=== PATIENT | male | born 1965 | race Caucasian/White ===

== ENCOUNTER 2018-04-12 16:10 | Inpatient (IN) | payer MEDICARE, OTHER ==
[~2018-04-12] VITALS: Ht 172.7 cm; Wt 134.7 kg
[2018-04-12] MEDS ORDERED: CARV6.25 PO (16:54)
[2018-04-12] MEDS ORDERED: INSULANPEN (16:54)
[2018-04-12] MEDS ORDERED: FURO80 PO (16:54)
[2018-04-12] MEDS ORDERED: Humalog100 UNIT/1 (16:55)
[2018-04-12] MEDS ORDERED: ALBU3IS INH (16:55)
[2018-04-12] MEDS ORDERED: LOPE2C PO (16:55)
[2018-04-12] MEDS ORDERED: METF500C PO (16:56)
[2018-04-12] MEDS ORDERED: PHENY100ER PO (16:57)
[2018-04-12] MEDS ORDERED: LOSARTAN-HCTZ1 EAC1 PO (16:57)
[2018-04-12] MEDS ORDERED: SACC250C (16:58)
[2018-04-12] MEDS ORDERED: PREG75 PO (16:58)
[2018-04-12 17:04] LABS: BASOPHILS ABSOLUTE AUTO 0.07 K/mm3 (0.00-0.23); BASOPHILS PERCENT AUTO 0 % (0-2); EOSINOPHILS ABSOLUTE AUTO 0.43 K/mm3 (0.00-0.68); EOSINOPHILS PERCENT AUTO 3 % (0-6); Hematocrit 19.7 % (37.0-53.0); IMMATURE GRAN ABSOLUTE AUTO 0.14 K/mm3 (0.00-0.10); IMMATURE GRAN PERCENT AUTO 1 % (0-1); LYMPHOCYTES ABSOLUTE AUTO 3.13 K/mm3 (0.84-5.20); LYMPHOCYTES PERCENT AUTO 19 % (21-46); MONOCYTES ABSOLUTE AUTO 1.11 K/mm3 (0.16-1.47); MONOCYTES PERCENT AUTO 7 % (4-13); Mean Corpuscular HGB 26.7 pg (26.0-34.0); Mean Corpuscular HGB Conc 30.5 g/dL (31.5-36.5); Mean Corpuscular Volume 88 fL (80-100); NEUTROPHILS ABSOLUTE AUTO 11.87 K/mm3 (1.96-9.15); NEUTROPHILS PERCENT AUTO 71 % (41-73); Platelet Count 360 K/mm3 (150-400); RDW Coefficient Variation 15.7 % (11.7-14.2); RDW Standard Deviation 50.3 fL (35.1-46.3); Red Blood Cell Count 2.25 M/mm3 (4.30-5.90); White Blood Cell Count 16.75 K/mm3 (4.00-11.30)
[2018-04-12 17:25] LABS: Albumin, Blood 1.8 g/dL (3.4-5.0); Albumin/Globulin Ratio 0.4 (0.8-1.8); Bilirubin, Total 0.3 mg/dL (0.1-1.0); Bun/Creatinine Ratio 14.3 (12.0-20.0); Calcium, Blood 6.6 mg/dL (8.5-10.1); Creatinine, Blood 2.17 mg/dL (0.60-1.20); Globulin, Blood 4.6 g/dL (2.2-4.0); Potassium, Blood 4.5 mmol/L (3.5-5.5); Total Protein, Blood 6.4 g/dL (6.4-8.2)
[2018-04-12 18:00] LABS: Gentamicin, Random 3.9 ug/Ml
[2018-04-12] MEDS ORDERED: DOCU100 PO (22:16)
[2018-04-12] MEDS ORDERED: PRAV20 PO (22:16)
[2018-04-12] MEDS ORDERED: OXYC10ER PO (22:19)
[2018-04-12] MEDS ORDERED: MAGOXI400 PO (22:19)
[2018-04-12] MEDS ORDERED: ACET325 PO (22:35)
[2018-04-12] MEDS ORDERED: LORA.5 PO (22:36)
[2018-04-12 22:39] LABS: Gentamicin, Trough 3.6 ug/mL (0.0-1.9)
[2018-04-12] MEDS ORDERED: ONDA4ODT (22:39)
--- NOTE | 2018-04-13 05:55 | NUR ---
SHIFT SUMMARY PT ALERT AND ORIENTED X 3 THORUGHOUT SHIFT. HE ARRIVED FROM [facility] WITH SOME AGITATION, THIS WAS NOT PRESENT AFTER ENGAGING WITH [facility]. HE STATED THAT HE WAS HAPPY WITH THE BED HE HAD HERE AND THE CARE THAT HE RECEIVED. PT HAD TWO UNITS OR PRBCS WHILE HERE AND HIS VITAL SIGNS IMPROVED T/O THE SHIFT. PT HAD PAIN DURING MOVEMENT IN HIS FOOT AND RISIDUAL LIMB, BUT THIS WAS ALLEVIATED TO PATIENT SATISFACTION WITH ORDERED PAIN MEDICATION. PT SLEPT T/O THE SHIFT, WAKING EASILY FOR VITALS AND ASSESSMENTS. PT DENIED ANY UNMET NEEDS, TOOK PILLS WHOLE WITHOUT ISSUE AND WAS ABLE TO COMMUNICATE WITH STAFF EFFECTIVELY. HE HAS HIS BED IN THE LOWEST POSITION, CALL LIGHT IN REACH AND 2X SIDE RAILS IN PLACE. HE WILL CONTINUE TO BE MONITORED UNITL HANDOFF TO DAYSHIFT RN.
[2018-04-13 06:42] LABS: Hematocrit 23.3 % (37.0-53.0); Hemoglobin 7.4 g/dL (13.5-17.5); Mean Corpuscular HGB 27.1 pg (26.0-34.0); Mean Corpuscular HGB Conc 31.8 g/dL (31.5-36.5); Mean Platelet Volume 8.9 fL (9.1-12.4); Platelet Count 327 K/mm3 (150-400); RDW Coefficient Variation 15.5 % (11.7-14.2); RDW Standard Deviation 47.8 fL (35.1-46.3); Red Blood Cell Count 2.73 M/mm3 (4.30-5.90); White Blood Cell Count 14.41 K/mm3 (4.00-11.30)
[2018-04-13 06:58] LABS: Gentamicin, Random 2.3 ug/Ml
[2018-04-13 07:04] LABS: Mean Corpuscular Volume 85 fL (80-100)
--- NOTE | 2018-04-13 10:20 | NUR ---
NURSING PCU DAYSHIFT: Assumed care of pt at approx 0700. A/O, pleasant, cooperative w/care. C/O 710 L foot pain, treating w/meds as ordered. 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 Pt is bedrest at this time w/NWB status d/t recent L partial foot amputation. Tele in place, NSR, no c/o CP/pressure, SBP 120's prior to a.m. meds, trace general edema. L/S cta t/o, O2 sat 100% on RA, denies dyspnea, no noted cough. Abd mildly distended which pt states is normal, BT+, denies nausea, voiding dark/tea clored urine using urinal independently. Mediport present and accessed in RCW w/NS TKO. No s/s of acute distress at this time. Seen by PMD, new d/o received. Pt changed to medical status w/o Dr. Carlos us to be called for podiatry consult and wound management. Pt denies any current needs or questions regarding plan of care. Call light in reach, cont to monitor for changes.
[2018-04-13 15:34] LABS: Gentamicin, Random 1.6 ug/Ml
--- NOTE | 2018-04-13 17:11 | NUR ---
NURSING PCU DAYSHIFT SUMMARY: No significant changes noted t/o the a.m. Seen by facility maintenance helper, new d/o received for L foot amputation wound management. Wound vac placed by wound RN and CN at approx 1300, pt tolerated well. Pt has been resting well t/o the shift w/o complaints. Continues to refuse repositioning or personal care. Provided education on importance of repositioning for skin health and pressure ulcer prevention, pt verbalized understanding. No s/s of acute distress at this time. Pt remains medical status w/o tele, awaiting bed assignment. Call light remains in reach, cont to monitor until rpt is given to NOC RN.
--- NOTE | 2018-04-14 02:59 | NUR ---
TRANSFER: REPORT RECIEVED FROM LAURA PARKER. PT TRANSFERED TO UNIT AT ABOUT 2200. UPON ASSESSMENT PT IS IN NO VISABLE DISTRESS,A/O, VSS. PT DENIES PAIN AT THIS TIME. SURGICAL SITE AND WOUND VAC WNL, NO LEAKING NOTED. KEITH REPORTED THAT PT HAD BEEN REFUSING REPOSITIONING AND ASSESSMENT OF BUTTOCK ON PCU. PT AGREED TO LET [employer]ANT ENGINEER JHONATAN AND I GIVE HIM A BED BATH AND ASSESS/TAKE PICTURES OF PT WOUNDS AT COCCYX. MODERATE ASSIST TO TURN AND PICTURES TAKEN OF ULCER WOUND AT COCCYX, SEE PAPER CHART. WOUND HAS MODERATE AMOUNT OF PURULENT DRAINAGE AND ESCHAR TISSUE. TWO MEPILEX DRESSINGS PLACED AT THIS TIME AND PT EDUCATED ABOUT THE NEED FOR FREQUENT TURNING. PT COMPLIANT, BUT TOOK SOME CONVINCING TO ALLOW REPOSITIONING. PT REPORTS THAT A LEAD CASE MANAGER HAS NOT SEEN HIS WOUND AT COCCYX. WOULD RECOMMEND WOUND CARE CONSULT, POSSIBLE DEBRIDEMENT. WILL MAKE THE DAY RN, AND CODING COMPLIANCE MANAGER AWARE AND CTM.
--- NOTE | 2018-04-14 06:29 | NUR ---
SUMMARY: NO CHANGE SINCE TRANSER. PT TURNED Q2, AND WOUND SITE AT COCCYX CHECKED THIS AM, MEPILEX X2 CDI. PT MEDICATED FOR PAIN X1. MEDIPORT TO TKO FLUIDS. PT REQUESTED O2 WHILE SLEEPING, REPORTS THAT 3L NC IS HIS BASELINE FOR SLEEP, DENIES CPAP USE. NO CHANGE IN WOUND VAC. VSS, TELE DC'D PER ORDER. WILL CTM AND REPORT TO DAY RN.
[2018-04-14 06:33] LABS: Gentamicin, Random 0.4 ug/Ml
--- NOTE | 2018-04-14 10:36 | NUR ---
CONSULT CALLED TO DR PATTERSON'S OFFICE FOR COCCYX WOUND.
--- NOTE | 2018-04-14 13:30 | NUR ---
DR PATTERSON IN TO SEE PATIENT, TENTATIVE PLAN TO OC TO OR TOMORROW TO DEBRIDE COCCYX.
[2018-04-14] MEDS ORDERED: OXYC10ER PO (15:24)
--- NOTE | 2018-04-14 15:38 | NUR ---
PATIENT LOCATED OWN MEDS IN BELONGINGS BAG. TAKEN TO PHARMACY AT THIS TIME. VO REC'D FOR PATIENT'S HOME DOSE OF OXYCONTIN.
--- NOTE | 2018-04-14 18:09 | NUR ---
SHIFT SUMMARY PATIENT APPEARS COMFORTABLE THIS AFTERNOON, SLEEPING INTERMTANTLY. WOUND VAC TO R FOOT INTACT, SS DRAINAGE. TOLERAATING PO. PLAN FOR OC TO OR TOMORROW FOR COCCYX DEBRIDEMENT.
--- NOTE | 2018-04-15 04:19 | NUR ---
SHIFT SUMMARY PT ADMITTED FOR POST OPERATIVE ANEMIA. PT HAS BEEN NPO [place]CE [place] IN PREP FOR POTENTIAL WOUND DEBRIDEMENT TODAY OF SACRAL WOUND. ESCHAR PRESENT TO WOUND BED, MEPILEX IN PLACE OVER SACRUM. S/P LEFT FOOT DEBRIDEMENT AND WOUND VAC PLACEMENT FOR NONHEALING ULCER. SCANT AMOUNT SS DRAINAGE PRESENT IN TUBING. PT IS 2 MAX ASSIST FOR REPOSITIONING AND REFUSED SIDE TO SIDE REPOSITIONING THIS SHIFT. HE DID ALLOW CHANGING THE CRUZ AND PARTIAL ADJUSTMENT. LEFT FOOT ELEVATED ON PILLOWS. 1L O2 VIA NC, PT DENIES SOB. WILL CTM UNTIL PASS TO NEXT SHIFT.
--- NOTE | 2018-04-15 07:10 | NUR ---
pt reports pain 6/10 req his pain meds when avail stated yesterday they did not have him on his long acting pain meds but they did get it reordered pt has wound vac to l bka upper and lower pt has sero/sang drainage to woundvac pt also has a dressing to r abk has dressing x2 cdi pt has optifoam dressing to coccyx with odor pt is npo until seen by dr french for poss coccyx debridement today
--- NOTE | 2018-04-15 09:30 | NUR ---
dr french by ok to eat breakfast no surg today for debridement will trial sentyl and replace optifoam dressing will do daily to remove black eschar
--- NOTE | 2018-04-15 11:53 | NUR ---
new dressing applied to coccyx with santyl medication repositioned earlier pt had a leak to wound vac placed a tegaderm to lower dressing and upper dressing no longer having a leak
--- NOTE | 2018-04-15 14:48 | NUR ---
pt req pain meds 1 tab po oxy given pain 08/11
--- NOTE | 2018-04-15 17:33 | NUR ---
PT EATING DINNER REQ IMMODIUM OK TO START WITH 4 MG PER ORDER
--- NOTE | 2018-04-15 18:27 | NUR ---
PT STATED HE WANTS TO TRY AND SLEEP REPOSISTIONED
--- NOTE | 2018-04-16 05:19 | NUR ---
SHIFT SUMMARY PT REMAINS ON FLOOR FOR POST OP ANEMIA & CHRONIC WOUNDS. H&H THIS MORNING IS SLIGHTLY IMPROVED. WOUND VAC TO LEFT FOOT D/I, NO LEAKS NOTED. MEDICATED FOR PAIN PER EMAR. PT ALLOWED PARTIAL REPOSITIONING. SANTYL CREAM AND MEPILEX TO COCCYX WOUND. 1L VIA NC, PT DENIES SOB. NO ACUTE CHANGES OVERNIGHT. WILL CTM UNTIL PASS TO NEXT SHIFT.
[2018-04-16 05:21] LABS: Hematocrit 24.4 % (37.0-53.0); Hemoglobin 7.5 g/dL (13.5-17.5); Mean Corpuscular HGB 27.1 pg (26.0-34.0); Mean Corpuscular HGB Conc 30.7 g/dL (31.5-36.5); Mean Platelet Volume 9.1 fL (9.1-12.4); Platelet Count 428 K/mm3 (150-400); RDW Coefficient Variation 16.4 % (11.7-14.2); RDW Standard Deviation 52.8 fL (35.1-46.3); Red Blood Cell Count 2.77 M/mm3 (4.30-5.90); White Blood Cell Count 12.52 K/mm3 (4.00-11.30)
[2018-04-16 05:22] LABS: Mean Corpuscular Volume 88 fL (80-100)
[2018-04-16 05:40] LABS: Anion Gap 8 mmol/L (6-16); Blood Urea Nitrogen 15 mg/dL (8-24); Bun/Creatinine Ratio 15.2 (12.0-20.0); CO2, Blood 23 mmol/L (21-32); Calcium, Blood 7.8 mg/dL (8.5-10.1); Chloride, Blood 108 mmol/L (98-108); Creatinine, Blood 0.98 mg/dL (0.60-1.20); Glomerular Filtration Rate >60 (60-); Glucose, Blood 100 mg/dL (70-99); Potassium, Blood 4.1 mmol/L (3.5-5.5); Sodium, Blood 139 mmol/L (136-145)
[2018-04-16 09:05] LABS: Gentamicin, Random 0.3 ug/Ml
--- NOTE | 2018-04-16 10:27 | NUR ---
pt watching football game wants to wait untill it is over to do the dressing changes
--- NOTE | 2018-04-16 11:51 | NUR ---
dr sanford by to see pt meds given as sched
--- NOTE | 2018-04-16 14:56 | NUR ---
Permission to provide care Permission granted by patient for Ale Dove to provide care 04/17/18
--- NOTE | 2018-04-16 15:20 | NUR ---
WOUND VAC DRESSING TO L LEG CHANGED X2 ALSO PLACED NEW DRESSING TO COCCYX SANTYL APPLIED FENT GIVEN PRIOR TO DRESSING CHANGE PT OOB TO CHAIR WITH SAGRARIO LIFT UNABLE TO ZAIRA SITTING ON HIS BOTTOM ASSISTED BACK TO BED
--- NOTE | 2018-04-16 17:57 | NUR ---
pt declined dinner stated he wants to rest repositioned
--- NOTE | 2018-04-16 22:33 | NUR ---
PT MOVED FROM 224 TO 227 FOR CEILING LIFT PRN
--- NOTE | 2018-04-17 05:53 | NUR ---
SHIFT SUMMARY PT REMAINS ON FLOOR FOR POST OP ANEMIA, GENERALLY RESOLVED, AND CHRONIC WOUNDS. PT HAS BEEN NPO SINCE MIDNIGHT. HE IS TENTATIVELY SCHEDULED FOR THE OR TODAY FOR DEBRIDEMENT OF SACRAL WOUND. RIGHT STUMP WOUND REDRESSED THIS EVENING AND STUMP LOTIONED AND SOCK PLACED. HE WAS HAVING MORE PAIN TODAY, MEDICATED PER EMAR. HE CONTINUES TO REFUSE THE MAJORITY OF REPOSITIONING. INSULIN COVERAGE PER EMAR. WILL CTM UNTIL PASS TO NEXT SHIFT.
--- NOTE | 2018-04-17 09:49 | NUR ---
BROUGHT TO [facility] FOR SURGERY VSS COOPERATIVE WITH ADMISSION.
--- NOTE | 2018-04-17 10:36 | NUR ---
04/17/18 1036 Kecia Smallwood PATIENT IS ON SCHEDULED ANTIBIOTICS
[2018-04-17 12:32] LABS: Hematocrit 25.7 % (37.0-53.0); Hemoglobin 7.9 g/dL (13.5-17.5); Mean Corpuscular HGB 27.1 pg (26.0-34.0); Mean Corpuscular HGB Conc 30.7 g/dL (31.5-36.5); Mean Corpuscular Volume 88 fL (80-100); Mean Platelet Volume 8.9 fL (9.1-12.4); Platelet Count 422 K/mm3 (150-400); RDW Coefficient Variation 16.5 % (11.7-14.2); RDW Standard Deviation 53.3 fL (35.1-46.3); Red Blood Cell Count 2.92 M/mm3 (4.30-5.90); White Blood Cell Count 11.42 K/mm3 (4.00-11.30)
--- NOTE | 2018-04-17 15:51 | NUR ---
SHIFT SUMMARY PT A&OX4, 2LNC, S/P I&D SACRAL DECUB ULCER, DRESSING SCANT DRAINAGE. LLE WOUND VAC, NO LEAKS NOTED, RLE BKA CDI, BOTH ELEVATED. MEDIPORT TKO @ 25 MLS/HR. PAIN MANAGED PER EMAR. ZAIRA PO, DENIES N&V. REPOSITIONING Q2 WITH PT ASSISTANCE. CBG'S CNI. WILL CTM & TX PER EMAR UNTIL REPORT GIVEN TO ONCOMING NOC RN.
--- NOTE | 2018-04-18 05:19 | NUR ---
SUMMARY NO ACUTE CHANGES NOTED FROM ASSESSMENT. PT CONTINUES TO REFUSE TO BE REPOSITIONED Q2 HRS. EDUCATION WAS PROVIDED. PT WAS ALSO ENCOURAGED TO ALLOW PLACEMENT OF SLING FOR LIFT USE TO EASE REPOSITIONING. HE CONTINUES TO REFUES AND BACAME ANGRY. DRSG REMAIN C/D/I. PT HAS STAYED OFF HIS BACK AND TO THE RIGHT SIDE. WOUND VAC IN PLACE. PAIN MANAGED PER EMAR. PT ISTOLERATING PO INTAKE. CALL LIGHT IN REACH, WCTM AND REPORT TO ONCOMING RN.
[2018-04-18 11:25] LABS: Anion Gap 10 mmol/L (6-16); Blood Urea Nitrogen 16 mg/dL (8-24); Bun/Creatinine Ratio 15.1 (12.0-20.0); CO2, Blood 21 mmol/L (21-32); Calcium, Blood 7.9 mg/dL (8.5-10.1); Chloride, Blood 106 mmol/L (98-108); Creatinine, Blood 1.06 mg/dL (0.60-1.20); Creatinine, Blood 1.08 mg/dL (0.60-1.20); Gentamicin, Trough <0.2 ug/mL (0.0-1.9); Glomerular Filtration Rate >60 (60-); Glucose, Blood 202 mg/dL (70-99); Sodium, Blood 137 mmol/L (136-145)
--- NOTE | 2018-04-18 18:45 | NUR ---
SHIFT SUMMARY PT HAS DONE WELL THIS SHIFT. MEDICATED WITH SCHEDUALED OXYCONTIN PER EMAR AND MEDICATED ONCE WITH ROXICODONE FOR BREAKTHRU PAIN. DRESSING ON COXYX CHANGED BY DR PATTERSON-WILL CONTINUE DAMP TO DRY DRESSING CHANGES DAILY. WOUND VAC ON LLE WITH GOOD SUCTION-NO LEAKS. PT REFUSES Q2 REPOSITION BUT WILL CALL TO REPOSITION WHEN HE FEELS IT'S NEEDED-PT EDUCATED ON THE NEED TO CONTINUOUSLY RELIEVE PRESSURE ON COXYX-PT VERBALIZED UNDERSTANDING.
--- NOTE | 2018-04-18 20:33 | NUR ---
Patient approved this clinical nursing instructor to work with patient.
--- NOTE | 2018-04-19 15:10 | NUR ---
PERMISSION FOR CARE PT GAVE THIS FINGER BUFF SEWER PERMISSION TO CARE FOR ON APRIL 20, 2018
--- NOTE | 2018-04-19 17:04 | NUR ---
SHIFT SUMMARY NO ACUTE CHANGES TODAY. VSS. PT MEDICATED WITH SCHEDULED PAIN MEDICATIONS AND X1 DOSE PRN MEDICATION. WOUND VAC DRESSINGS CHANGED TODAY AND COCCYX DRESSING CHANGED BY DR. PATTERSON. REPOSITIONING Q2H. PT ZAIRA ADA DIET. IV TKO INTO MEDIPORT. USING URINAL TO VOID. USES CALL LIGHT. WILL CONT TO MONITOR.
--- NOTE | 2018-04-20 06:44 | NUR ---
SUMMARY PT REFUSING FULL SKIN CK WOULD REQUIRE REPOSITIONING. PT REFUSING ALL REPOSITIONING PER STAFF ASSIST. PT REPOSITIONS SELF SLIGHTLY ONLY. VERB UNDERSTANDING OF RISKS. WOND VAC AT HEEL TEGADERM REINFORCED. CONT SX. PO PAIN MEDS EFFECTIVE. JUST GAVE PO PAIN MED. GAVE SHORT ACTING PT WILL BE TAKING LONG ACTING SOON.
--- NOTE | 2018-04-20 13:35 | NUR ---
PT DECLINED BEING REPOSITIONED
--- NOTE | 2018-04-20 17:18 | NUR ---
SUMMARY NO ACUTE CHANGES T/O SHIFT. PT REFUSES TO BE REPOSITIONED. STATES MOVES SELF IN BED. DID ALLOW CHANGE OF COCCYX DRESSING THIS SHIFT. FOUL SMELLING. DID NOT ALLOW ASSESSMENT OF STUMP; DID NOT ALLOW STOCKING TO BE REMOVED. WOUND VAC OPERATING W/O DIFFICULTY. MEDICATED PER ORDERS DURING SHIFT FOR PAIN. CALL LIGHT IN REACH.
[2018-04-21 04:55] LABS: BASOPHILS ABSOLUTE AUTO 0.11 K/mm3 (0.00-0.23); BASOPHILS PERCENT AUTO 1 % (0-2); EOSINOPHILS PERCENT AUTO 5 % (0-6); Hemoglobin 8.2 g/dL (13.5-17.5); IMMATURE GRAN ABSOLUTE AUTO 0.07 K/mm3 (0.00-0.10); IMMATURE GRAN PERCENT AUTO 1 % (0-1); LYMPHOCYTES ABSOLUTE AUTO 2.41 K/mm3 (0.84-5.20); LYMPHOCYTES PERCENT AUTO 23 % (21-46); MONOCYTES ABSOLUTE AUTO 0.89 K/mm3 (0.16-1.47); MONOCYTES PERCENT AUTO 8 % (4-13); Mean Corpuscular HGB 26.2 pg (26.0-34.0); Mean Corpuscular HGB Conc 30.4 g/dL (31.5-36.5); Mean Corpuscular Volume 86 fL (80-100); NEUTROPHILS ABSOLUTE AUTO 6.67 K/mm3 (1.96-9.15); NEUTROPHILS PERCENT AUTO 63 % (41-73); Platelet Count 479 K/mm3 (150-400); RDW Coefficient Variation 16.2 % (11.7-14.2); RDW Standard Deviation 50.7 fL (35.1-46.3); Red Blood Cell Count 3.13 M/mm3 (4.30-5.90); White Blood Cell Count 10.65 K/mm3 (4.00-11.30)
[2018-04-21 05:19] LABS: Anion Gap 7 mmol/L (6-16); Blood Urea Nitrogen 21 mg/dL (8-24); Bun/Creatinine Ratio 15.9 (12.0-20.0); CO2, Blood 24 mmol/L (21-32); Calcium, Blood 8.2 mg/dL (8.5-10.1); Chloride, Blood 105 mmol/L (98-108); Creatinine, Blood 1.32 mg/dL (0.60-1.20); Glomerular Filtration Rate >60 (60-); Glucose, Blood 145 mg/dL (70-99); Potassium, Blood 4.3 mmol/L (3.5-5.5); Sodium, Blood 136 mmol/L (136-145)
[2018-04-21 05:22] LABS: Percent Saturation 15.6 % (20.0-50.0)
--- NOTE | 2018-04-21 06:38 | NUR ---
SUMMARY PT CONTINUES TO REFUSE REPOSITIONING BY STAFF.I CONT UNABLE TO FULLY ASSESS SKIN/ WOUNDS UNABLE TO SEE. PT WITH O ACUTE CHANGES TONIGHT. PT REPORTS HE WANTS TO GO HOME TODAY.
[2018-04-21] MEDS ORDERED: NYSTATIN1 EAC1 TOP (11:29)
--- NOTE | 2018-04-21 16:00 | NUR ---
ASSUMED CARE OF PT AT THIS TIME. UPDATED PT ON DISCHARGE PROCESS.
--- NOTE | 2018-04-21 18:06 | NUR ---
DISCHARGE PT DISCHARGED HOME AT THIS TIME. PT RECEIVED VERBAL AND WRITTEN DC INSTRUCTIONS AND VERB AN UNDERSTANDING. WOUND VAC SWITCHED TO PORTABLE VAC, MEDIPORT DEACCESSED PER PROTOCOL AND WNL, ALL PERSONAL BELONGINGS AND MEDICATIONS SENT HOME WITH PT. PT LEFT WITH [facility] IN ELECTRIC W/C WITH ALL BELONGINGS IN HAND. PT REPORTS HAVING F/U APPT SCHEDULED ON Tuesday04/24/18 AT 1345 WITH MOLDING SANDER.
== END 2018-04-21 18:09 | disposition home or self-care (01) | DRG 623 ==
LOC: ER 16:10 → SURS 19:43 → PCU 19:43 → SURS 19:57 → PCU 20:07 → SURS 04-13 20:45
PROVIDERS: Emergency Medicine; Internal Medicine; ADMIT Internal Medicine
PROC: 30233N1 Transfusion of Nonautologous Red Blood Cells into Peripheral Vein, Percutaneous Approach (ICD-10-PCS; principal; 2018-04-12)
PROC: 0JB70ZZ Excision of Back Subcutaneous Tissue and Fascia, Open Approach (ICD-10-PCS; 2018-04-17)
DX: E11.621 Type 2 diabetes mellitus with foot ulcer (principal); Z68.42 Body mass index [BMI] 45.0-49.9, adult; D62 Acute posthemorrhagic anemia; L97.526 Non-pressure chronic ulcer of other part of left foot with bone involvement without evidence of necrosis; L03.116 Cellulitis of left lower limb; E11.622 Type 2 diabetes mellitus with other skin ulcer; I95.9 Hypotension, unspecified; E11.51 Type 2 diabetes mellitus with diabetic peripheral angiopathy without gangrene; E66.01 Morbid (severe) obesity due to excess calories; Z99.3 Dependence on wheelchair; L89.150 Pressure ulcer of sacral region, unstageable; Z89.511 Acquired absence of right leg below knee; F17.200 Nicotine dependence, unspecified, uncomplicated; I25.10 Atherosclerotic heart disease of native coronary artery without angina pectoris; Z79.52 Long term (current) use of systemic steroids; Z89.432 Acquired absence of left foot; B96.5 Pseudomonas (aeruginosa) (mallei) (pseudomallei) as the cause of diseases classified elsewhere; Z79.4 Long term (current) use of insulin
CPT/HCPCS: 36415; 36430; 73620; 80048; 80053; 80170; 82565; 82728; 82947; 83540; 83550; 83605; 85025; 85027; 86850; 86900; 86901; 86922; 99285-25; J1580; J1642; J1650; J2250; J3010; J7040; J7120; P9016